=== PATIENT | female | born 1930 | race American Indian/Alaskan Native ===

== ENCOUNTER 2017-05-02 10:56 | Outpatient (CLI) | payer MEDICARE, OTHER ==
[2017-05-02] MEDS ORDERED: WATER FOR INJ (PF) IV ONE (12:13)
[2017-05-02] MEDS ORDERED: KINEVAC IV ONE ×2 (12:13→12:27)
--- NOTE | 2017-05-02 13:48 | Nuclear Medicine Report ---
HEPATOBILIARY SCAN: History: Gallbladder dysfunction, right upper quadrant pain, cramping. No comparison. Following the injection of the radionuclide, serial scanning was obtained over the right upper quadrant. Initial imaging of the liver demonstrates a relatively normal activity pattern. Progressive concentration of the radionuclide in the bile ducts, with filling of both the gallbladder and small bowel, is identified within a normal time period. The gallbladder ejection fraction is within normal limits measuring 72%. The patient reports the same symptoms were reproduced during the infusion of CCK. IMPRESSION: HIDA scan within normal limits. Normal gallbladder ejection fraction. Symptomatology as described.
== END 2017-05-02 10:57 | disposition home or self-care (01) ==
LOC: NM 10:56
PROVIDERS: ATTEND Internal Medicine
DX: K82.8 Other specified diseases of gallbladder (principal)
CPT/HCPCS: 78227; A9537; J2805